=== PATIENT | female | born 1980 | race Caucasian/White ===

== ENCOUNTER 2023-08-08 06:46 | Day surgery (SDC) | payer BC ==
[~2023-08-08 06:46] MED LIST: Sodium Chloride 0.9% 10 ML Syringe FLUSH PRN; Sodium Chloride 0.9% 10 ML Syringe FLUSH SCH
[2023-08-08] MEDS ORDERED: Bupivacaine 0.5% 30 ML SDV ONE (06:59)
[2023-08-08] MEDS: Lactated Ringers 1,000 ML IV SCH (07:05)
[2023-08-08 07:17] LABS: BASOPHILS ABSOLUTE AUTO 0.1 K/mm3 (0.0-0.2); BASOPHILS PERCENT AUTO 0.6 % (0.0-1.0); EOSINOPHILS ABSOLUTE AUTO 0.3 K/mm3 (0.0-0.4); EOSINOPHILS PERCENT AUTO 2.7 % (0.0-6.0); HEMATOCRIT 45.4 % (37.0-47.0); HEMOGLOBIN 15.4 gm/dl (12.0-16.0); IMMATURE GRAN ABSOLUTE AUTO 0.03 K/mm3 (0.00-0.05); IMMATURE GRAN PERCENT AUTO 0.3 % (0.0-0.4); LYMPHOCYTES ABSOLUTE AUTO 3.3 K/mm3 (1.0-4.8); LYMPHOCYTES PERCENT AUTO 30.6 % (24.0-44.0); MEAN CORPUSCULAR HEMOGLOBIN 29.5 pg (28.0-32.0); MEAN CORPUSCULAR HGB CONC 33.9 g/dl (32.0-36.0); MEAN PLATELET VOLUME 9.6 fl (9.4-12.3); MONOCYTES ABSOLUTE AUTO 0.9 K/mm3 (0.0-0.8); MONOCYTES PERCENT AUTO 8.4 % (0.0-8.0); NEUTROPHILS ABSOLUTE AUTO 6.1 K/mm3 (1.8-7.7); NEUTROPHILS PERCENT AUTO 57.4 % (41.0-71.0); PLATELET COUNT,PLT 193 K/mm3 (150-400); RED BLOOD CELL COUNT 5.22 M/mm3 (4.10-5.30); WHITE BLOOD CELL COUNT,WBC 10.65 K/mm3 (3.9-11.3)
[2023-08-08] MEDS: Scopalamine 1mg/3day Transdermal Patch TRDERM PRN (07:22)
[2023-08-08] MEDS ORDERED: Ondansetron 4 MG/2 ML SDV IVPUSH PRN (07:24)
[2023-08-08] MEDS ORDERED: fentaNYL 100 MCG/2 ML SDV IVPUSH PRN (07:24)
[2023-08-08] MEDS ORDERED: HYDROmorphone 0.5 MG/0.5 ML Syringe IVPUSH PRN (07:24)
[2023-08-08] MEDS ORDERED: Propofol 200 MG/20 ML SDV ONE (07:29)
[2023-08-08] MEDS ORDERED: Midazolam 1 MG/ML 2 ML SDV ONE (07:29)
[2023-08-08] MEDS ORDERED: fentaNYL 250 MCG/5 ML SDV ONE (07:30)
[2023-08-08 07:31] LABS: BUN/CREATININE RATIO 15.6 (14-18); CALCIUM 8.7 mg/dL (8.5-10.1); CREATININE 0.9 mg/dL (0.55-1.02); EST CRCL DRUG DOSING (CG) 76.76 mL/min
[2023-08-08] MEDS ORDERED: Phenylephrine 1% 10 MG/ML SDV ONE (07:35)
[2023-08-08] MEDS ORDERED: Rocuronium 50 MG/5 ML Vial ONE (07:35)
[2023-08-08] MEDS ORDERED: ceFAZolin 2 GM Vial ONE (07:45)
[2023-08-08] MEDS ORDERED: Dexamethasone 4 MG/ML 5 ML MDV ONE (08:18)
[2023-08-08] MEDS ORDERED: Ondansetron 4 MG/2 ML SDV ONE (08:18)
[2023-08-08] MEDS ORDERED: Ketorolac 15 MG/ML SDV ONE (08:19)
[2023-08-08] MEDS ORDERED: fentaNYL 100 MCG/2 ML SDV ONE (08:39)
[2023-08-08] MEDS: Bupivacaine 0.25% 10 ML SDV ONE (08:43)
[2023-08-08] MEDS: EPINEPHrine 1 MG/ML SDV ONE (08:44)
[2023-08-08] MEDS: Bupivacaine 0.5% 10 ML SDV ONE (08:46)
[2023-08-08] MEDS ORDERED: Acetaminophen/HYDROcodone 325-5 MG Tab PO PRN (10:04)
[2023-08-08] MEDS ORDERED: Acetaminophen/oxyCODONE 325-5 MG Tab PO PRN (10:08)
== END 2023-08-08 11:45 | disposition home or self-care (01) ==
LOC: JD.SDS 06:46
PROVIDERS: ATTEND Obstetrics & Gynecology
DX: N80.03 Adenomyosis of the uterus (principal); K21.9 Gastro-esophageal reflux disease without esophagitis; I10 Essential (primary) hypertension; E78.5 Hyperlipidemia, unspecified; G47.00 Insomnia, unspecified; Z88.6 Allergy status to analgesic agent; Z88.1 Allergy status to other antibiotic agents; Z79.899 Other long term (current) drug therapy
CPT/HCPCS: 36415; 58552; 80048; 81025; 85025; 86850; 86900; 86901; A9270; J0171; J0665; J0690; J1100; J1885; J2250; J2371; J2405; J2704; J3010; J3490; J7030; J7120; 00944

== ENCOUNTER 2023-08-18 22:28 | Emergency (ER) | payer BC ==
[2023-08-18 23:10] LABS: BASOPHILS ABSOLUTE AUTO 0.1 K/mm3 (0.0-0.2); BASOPHILS PERCENT AUTO 0.6 % (0.0-1.0); EOSINOPHILS ABSOLUTE AUTO 0.4 K/mm3 (0.0-0.4); EOSINOPHILS PERCENT AUTO 3.4 % (0.0-6.0); IMMATURE GRAN ABSOLUTE AUTO 0.03 K/mm3 (0.00-0.05); IMMATURE GRAN PERCENT AUTO 0.3 % (0.0-0.4); LYMPHOCYTES ABSOLUTE AUTO 3.8 K/mm3 (1.0-4.8); LYMPHOCYTES PERCENT AUTO 35.8 % (24.0-44.0); MEAN CORPUSCULAR HEMOGLOBIN 29.4 pg (28.0-32.0); MEAN CORPUSCULAR HGB CONC 34.1 g/dl (32.0-36.0); MEAN CORPUSCULAR VOLUME 86.1 fl (83.0-99.0); MONOCYTES ABSOLUTE AUTO 0.8 K/mm3 (0.0-0.8); MONOCYTES PERCENT AUTO 7.3 % (0.0-8.0); NEUTROPHILS ABSOLUTE AUTO 5.6 K/mm3 (1.8-7.7); NEUTROPHILS PERCENT AUTO 52.6 % (41.0-71.0); PLATELET COUNT,PLT 218 K/mm3 (150-400); RED BLOOD CELL COUNT 4.76 M/mm3 (4.10-5.30); WHITE BLOOD CELL COUNT,WBC 10.64 K/mm3 (3.9-11.3)
[2023-08-18 23:29] LABS: INR 1.01; PROTHROMBIN TIME 10.8 SECONDS (9.7-12.0)
[2023-08-18 23:30] LABS: PTT,PARTIAL THROMBOPLSTIN TIME 27.9 SECONDS (21.7-31.4)
[2023-08-18 23:35] LABS: A/G RATIO 1.2 (1-2); ALBUMIN 3.8 g/dl (3.4-5.0); ANION GAP 10.4 (5-15); BILIRUBIN TOTAL 0.4 mg/dL (0.2-1.0); BUN/CREATININE RATIO 13.3 (14-18); CALCIUM 8.6 mg/dL (8.5-10.1); CREATININE 0.9 mg/dL (0.55-1.02); EST CRCL DRUG DOSING (CG) 76.76 mL/min; MAGNESIUM 1.9 mg/dL (1.8-2.4); POTASSIUM,K 3.4 mEq/L (3.5-5.1); PROTEIN TOTAL,TP 6.9 g/dl (6.4-8.2)
[2023-08-18] MEDS: Sodium Chloride 0.9% 10 ML Syringe FLUSH PRN (23:35)
== END 2023-08-19 01:34 | disposition home or self-care (01) ==
LOC: JD.ED 22:28
DX: N99.820 Postprocedural hemorrhage of a genitourinary system organ or structure following a genitourinary system procedure (principal); I10 Essential (primary) hypertension; K21.9 Gastro-esophageal reflux disease without esophagitis; Z79.899 Other long term (current) drug therapy; Z88.1 Allergy status to other antibiotic agents; Z88.8 Allergy status to other drugs, medicaments and biological substances
CPT/HCPCS: 36415; 80053; 83735; 85025; 85610; 85730; 99284; J3490